=== PATIENT | female | born 1965 | race Caucasian/White ===

== ENCOUNTER 2017-07-07 09:42 | Emergency (ER) | payer SELFPAY ==
[~2017-07-07] VITALS: Ht 160 cm; Wt 75.0 kg
[~2017-07-07 09:42] MED LIST: IBUP-232 PO
[2017-07-07 09:43] VITALS: BP 147/80; PULSE 115; RESP 18; TEMP 98.8; O2SAT 94
[2017-07-07] MEDS ORDERED: AZITHROMYCIN 250 MG TAB PO ONE (10:30)
[2017-07-07] MEDS ORDERED: SODIUM CHLORIDE 0.9% FLUSH 10 ML FLUSH IVF PRN (10:30)
[2017-07-07] MEDS ORDERED: predniSONE 20 MG TAB PO ONE (10:30)
[2017-07-07 10:43] VITALS: BP 122/79; PULSE 101; RESP 20; O2SAT 93
[2017-07-07] MEDS ORDERED: AZIT250T3 PO (10:47)
[2017-07-07] MEDS ORDERED: VENTAER INH (10:47)
[2017-07-07] MEDS ORDERED: PRED-503 PO (10:47)
--- NOTE | 2017-07-07 10:47 | PD ---
HPI Chief Complaint: Cold / Flu Symptoms Time Seen by Provider: 10:27 Travel History International Travel<30 days: No Contact w/Intl Traveler<30days: No Traveled to known affect area: No History of Present Illness HPI So 52 old woman presents to the emergency department complaining of cough cold symptoms ongoing for the past several days. She had increased shortness of breath with this as well. She is a history of tobacco use but denies any history of lung disease. She's had fevers, productive cough, some nausea but no vomiting, she has had some headache. History Past Medical History Narrative Medical Tobacco use PNEUMOCCOCAL Vaccine (Year): 2 Menopausal: Yes : 6 Para: 6 Social History Alcohol Use: No Tobacco Use: Yes (1 PPD) Allergies-Medications (Allergen,Severity, Reaction): Coded Allergies: morphine (Unverified Allergy, Severe, Anaphylaxis, 07/07/17) Reported Meds & Prescriptions Reported Meds & Active Scripts Active Azithromycin 250 Mg Tab 250 Mg PO DAILY 4 Days Ventolin Hfa 18 GM Inh (Albuterol Sulfate) 90 Mcg/Act Aer 2 Puff INH Q6H PRN Deltasone (Prednisone) 20 Mg Tab 60 Mg PO DAILY 5 Days Review of Systems Except as stated in HPI: all other systems reviewed are Neg Physical Exam Narrative GENERAL: 52-year-old woman, generally well-appearing, no acute distress. SKIN: Focused skin assessment warm/dry. HEAD: Atraumatic. Normocephalic. EYES: Pupils equal and round. No scleral icterus. No injection or drainage. ENT: No nasal bleeding or discharge. Mucous membranes pink and moist. NECK: Trachea midline. No JVD. CARDIOVASCULAR: Regular rate and rhythm. No murmur appreciated. RESPIRATORY: Coarse breath sounds are the posterior lung wise. Moderate diffuse wheezing. Good air entry. GASTROINTESTINAL: Abdomen soft, non-tender, nondistended. Hepatic and splenic margins not palpable. MUSCULOSKELETAL: No obvious deformities. No edema. NEUROLOGICAL: Awake and alert. No obvious cranial nerve deficits. Motor grossly within normal limits. Normal speech. PSYCHIATRIC: Appropriate mood and affect; insight and judgment normal. Data Data Last Documented VS Vital Signs Date Time Temp Pulse Resp B/P (MAP) Pulse Ox O2 Delivery O2 Flow Rate FiO2 07/07/17 10:43 101 20 122/79 (93) 93 Room Air 07/07/17 09:43 98.8 Orders Orders Iv Access Insert/Monitor (07/07/17 10:28) Ecg Monitoring (07/07/17 10:28) Oximetry (07/07/17 10:28) Oxygen Administration (07/07/17 10:28) Chest, Single Ap (07/07/17 10:28) Sodium Chloride 0.9% Flush (Ns Flush) (07/07/17 10:30) Albuterol-Ipratropium Neb (Duoneb Neb) (07/07/17 10:30) Azithromycin (Zithromax) (07/07/17 10:30) Prednisone (Deltasone) (07/07/17 10:30) MDM Medical Decision Making Medical Screen Exam Complete: Yes Emergency Medical Condition: Yes Interpretation(s) Personally reviewed chest x-ray: Possible right lower lobe infiltrate. Differential Diagnosis Pneumonia, URI, COPD, bronchitis, other Narrative Course Medical decision making 52 old woman presents emergent department, cough cold symptoms, moderate diffuse wheezing, history of tobacco use, suspect reactive airway disease or bronchitis with COPD symptoms. We'll check x-ray. We'll treat antibiotics, steroids, bronchodilators. Diagnosis Primary Impression: Acute bronchitis Additional Instructions: Take antibiotics as prescribed. Use inhalers every 4-6 hours until symptoms resolve. Take prednisone as prescribed. Return to the emergency department for any worsening chest pain or trouble breathing. Follow-up with her primary doctor in the next 2-4 days. Med/Other Pt SpecificInfo: Prescription(s) given Scripts Azithromycin (Azithromycin) 250 Mg Tab 250 MG PO DAILY for Infection for 4 Days, #4 TAB 0 Refills Prov: Dirk Saavedra MD 07/07/17 Albuterol 18 GM Inh (Ventolin Hfa 18 GM Inh) 90 Mcg/Act Aer 2 PUFF INH Q6H Y for SHORTNESS OF BREATH, #1 INHALER 0 Refills Prov: Dirk Saavedra MD 07/07/17 Prednisone (Deltasone) 20 Mg Tab 60 MG PO DAILY for 5 Days, #15 TAB 0 Refills Prov: Dirk Saavedra MD 07/07/17 Disposition: 01 DISCHARGE HOME Condition: Stable Dirk Saavedra MD Jul 07, 2017 10:47
[2017-07-07] MEDS: RESP: ALBUTEROL 2.5 MG/IPRATROPIUM 0.5 MG NEB (SCH) INH ×2 (10:48→10:49)
--- NOTE | 2017-07-07 11:52 | RADRPT ---
EXAM DATE/TIME: 07/07/2017 11:11 [facility] COMPARISON: No previous studies available for comparison. INDICATIONS : Short of Breath and wheezing MEDICAL HISTORY : None. SURGICAL HISTORY : None. ENCOUNTER: Initial ACUITY: 3 days PAIN SCORE: 0/10 LOCATION: Bilateral chest FINDINGS: Minimal right basilar patchiness is noted consistent with possible developing infiltrate. Clinical co rrelation is recommended. The left lung is clear. The heart is normal. CONCLUSION: Minimal right basilar patchiness consistent with possible developing infiltrate. Clinical correlation is recommended. Kamron Lee MD on July 07, 2017 at 11:49 Board Certified Radiologist. This report was verified electronically.
== END 2017-07-07 13:14 | disposition home or self-care (01) ==
LOC: NEPE 09:42
DX: J20.9 Acute bronchitis, unspecified (principal); F17.200 Nicotine dependence, unspecified, uncomplicated; Z88.5 Allergy status to narcotic agent; Z79.899 Other long term (current) drug therapy
CPT/HCPCS: 71010; 94664; 99284; J7512